=== PATIENT | female | born 1960 | race African-American/Black ===

== ENCOUNTER 2016-12-08 12:30 | Inpatient (IN) ==
--- NOTE | 2016-12-08 13:16 | Emergency Department Note ---
Arrival - Arrival Chief Complaint: Arrhythmia/Palpitations Stated Complaint: LOW HEART RATE. ED Nursing Triage Note: Pt is wearing a heart monitor and states she was called by Dr Worley's nurse and told she needed to come into the ER for Bradycardia. Pt does c/o weakness. Mode of Arrival: Ambulatory Limitations: No Limitations Source: Patient Time Seen by Provider: 12/08/16 13:10 - History of Present Illness HPI Narrative: This 56-year-old black female presents after being called by Dr. Bush's office after her Holter monitor revealed severely depressed heart rates and in fact the patient presents here with a heart rate of 38. The patient does complain of weakness but no chest pain, nausea, or vomiting. She does become easily short of breath with any exertion but denies any other symptoms including near syncope. Currently in bed at rest she is in no acute medical distress. Onset (ago): unknown Allergies/Adverse Reactions: Allergies Allergy/AdvReac Type Severity Reaction Status Date / Time sulfamethoxazole Allergy ITCHING Verified 09/05/14 03:12 [From Bactrim] trimethoprim [From Bactrim] Allergy ITCHING Verified 09/05/14 03:12 Home Medications: Home Medications Medication Instructions Recorded Confirmed Type Aspirin [Ecotrin] 81 mg PO 09/05/14 09/05/14 History Hydrocodone/Acetaminophen 09/05/14 09/05/14 History [Hydrocodon-Acetaminophn 10-325] Losartan [Cozaar] 09/05/14 09/05/14 History Ondansetron Tab [Zofran Tab] 8 mg PO Q8H 09/05/14 09/05/14 History Metoclopramide Liquid [Reglan 5 - 10 mg PO ACHS #1200 mls 09/10/14 Rx Liquid] Pantoprazole Tab [Protonix Tab] 40 mg PO BID #60 tablet 09/10/14 Rx Polyethylene Glycol Powder 17 gm PO DAILY PRN #30 pack 09/10/14 Rx [Miralax] ALPRAZolam [Xanax] 0.25 mg PO BID PRN #15 tablet 09/11/14 Rx Propranolol LA Cap [Inderal LA Cap] 60 mg PO DAILY #30 capsule 09/11/14 Rx cloNIDine TAB [Catapres Tab] 0.1 mg PO BID tablet 09/11/14 Rx fentaNYL 12 MCG/HR PATCH 1 patch TRANSDERM Q3DAY #5 patch 09/11/14 Rx [Duragesic 12 Patch] methIMAzole [Tapazole] 10 mg PO DAILY #30 tablet 09/11/14 Rx Atorvastatin [Lipitor] 20 mg PO DAILY 12/08/16 12/08/16 History Fluticasone Propionate 12/08/16 History [Fluticasone 50 mcg Nasal [place]] Levothyroxine Tab [Synthroid Tab] 112 mcg PO DAILY@0700 12/08/16 12/08/16 History Valsartan [Valsartan] 12/08/16 History Review of System - Review of System 12 point system: reviewed and no additional remarkable complaints except as stated - Review of System Constitutional: Present: as per HPI Respiratory: Present: as per HPI Cardiovascular: Present: as per HPI Gastrointestinal: Present: as per HPI Medical,Surgical,& Family Hx - Medical History Cardio: History of: CAD, Hypertension, [place] Endocrine: History of: Dyslipidemia Gastrointestinal: History of: GERD - Surgical History Cardiac Surgeries: Sugical HX of: Cardiac Catheterization (stent) Abdominal Surgeries: Surgical HX of: Colonoscopy ([address] Landin with polyps discovered at [facility]), EGD (2 weeks ago by Perico Hui at [facility]) Reproductive Surgeries: Surgical HX of;: Hysterectomy - Family History Family History: Reports;: Family Heart Disease - Social History Smoking Status: Former smoker Exam Physical Examination: GENERAL: Well developed, well nourished elderly black female in no acute distress. HEENT: Normocephalic. No trauma. Moist mucous membranes. EOMI. PERRLA. ENT NML NECK: Supple. No adenopathy. CARDIAC: Regular. No murmurs. Heart rate 40 CHEST: Clear to auscultation. No respiratory distress. O2 sat 100% ABDOMEN: Soft. Nontender. Active bowel sounds. EXTREMITIES: No trauma. Normal ROM. No pedal edema. SKIN: No diaphoresis. No rash. NEURO: Alert. Neuro intact no focal deficits. Vital Signs: Vital Signs Temperature 96.3 F L 12/08/16 13:01 Pulse Rate 46 L 12/08/16 13:01 Respiratory Rate 16 12/08/16 13:10 Blood Pressure 97/54 12/08/16 13:01 O2 Sat by Pulse Oximetry 100 12/08/16 14:22 Course - Consultations Consultation #1: Dr. Bush to admit for pacemaker placement. Results - Labs CBC & BMP: 12/08/16 13:35 12/08/16 13:35 - Impressions EKG: Sinus bradycardia at 41 with normal MN interval and QRS duration. Right axis deviation noted. Normal ST segments. No acute injury pattern noted. - Diagnostic Findings Procedure: Chest x-ray: image reviewed by me, report reviewed by me ( Cardiomegaly with mild pulmonary edema) Disposition Clinical Impression: Bradycardia, Congestive heart failure Case discussed with: patient, patient's family Condition: Guarded Time of Disposition: 14:52
--- NOTE | 2016-12-08 13:47 | XRay Report ---
Exam: XR chest 1V portable Date: 12/08/2016 1:12 PM Indication: Shortness of breath Comparison: 09/05/2014 Technical: AP Findings: Cardiomegaly is present with ASVD. External cardiac leads are present. Mild interstitial thickening and low volume effusions suspected. Bony structures are intact. No pneumothorax. Impression: 1. Cardiomegaly with mild CHF and interstitial edema suspected PROCEDURE INTERPRETED AT [facility] DEPARTMENT OF RADIOLOGY Final Report Signed by: Dr. Chava Hernandez
[2016-12-08] MEDS ORDERED: MAGNESIUM SULF RIDER 4 GM in PREMIX 1 EACH IV PRN (13:59)
[2016-12-08] MEDS ORDERED: DOCUSATE SODIUM 100 MG CAPSULE PO PRN (13:59)
[2016-12-08] MEDS ORDERED: MAGNESIUM SULF RIDER 2 GM in PREMIX 1 EACH IV PRN (13:59)
[2016-12-08] MEDS ORDERED: BISACODYL 5 MG TABLET PO PRN (13:59)
[2016-12-08] MEDS ORDERED: ONDANSETRON 4 MG/2 ML VIAL IV PRN (13:59)
[2016-12-08] MEDS ORDERED: ZALEPLON 5 MG CAPSULE PO PRN (13:59)
[2016-12-08 14:15] LABS: Basophils % 0.4 % (0.0-0.8); Eosinophils # 0.1 10*3/uL (0.0-0.87); Eosinophils % 2.1 % (0.00-10.9); Hematocrit 35.1 VOL% (35.7-47.0); Hemoglobin 11.5 GM/DL (12.0-16.0); Immature Granulocytes % 0.1 %; Immature Granulocytes Absolute 0.01 #; Lymphocytes # 2.6 10*3/uL (1.4-4.0); Lymphocytes % 38.8 % (21.3-54.2); Mean Corpuscular HGB Conc 32.8 GM/DL (32-36); Mean Corpuscular Hemoglobin 29 PG (27-34); Mean Corpuscular Volume 88.2 FL (87-102); Mean Platelet Volume 10.2 FL (9.6-12.0); Monocytes # 0.6 10*3/uL (0.11-0.8); Monocytes % 8.2 % (1.7-12.7); Neutrophils # 3.4 10*3/uL (1.4-7.4); Neutrophils % 50.4 % (38.7-73.9); Platelet Count 212 T/CUMM (130-400); Red Blood Count 3.98 MC/CUMM (3.8-5.5); Red Cell Distribution Width 13.6 % (9.3-17.3); White Blood Count 6.7 T/CUMM (4-12)
[2016-12-08] MEDS ORDERED: diphenhydrAMINE CAP 50 MG CAPSULE PO STA (14:29)
[2016-12-08] MEDS ORDERED: DIAZEPAM 5 MG TABLET PO STA (14:29)
[2016-12-08 14:38] LABS: Free T4 (Free Thyroxine) 1.23 NG/DL (0.76-1.46); PT Patient Result 10.3 SECS; Partial Thromboplastin Time 25.8 SECS (0-40); Troponin I Only < 0.015 NG/ML (0.00-0.045)
[2016-12-08] MEDS ORDERED: diphenhydrAMINE CAP 25 MG CAPSULE ONE (14:38)
[2016-12-08] MEDS ORDERED: DIAZEPAM 5 MG TABLET ONE (14:38)
[2016-12-08 14:43] LABS: Apearance,Urine CLEAR (Clear); Bilirubin,Urine Negative (Negative); Blood, Urine Negative (Negative); Glucose,Urine (UA) Negative (Negative); Hyaline Casts,Urine 5 /LPF (0-3); Ketones,Urine Negative (Negative); Mucus,Urine Occasional /LPF (Occasional); Nitrite,Urine Negative (Negative); Protein,Urine Negative; RBC,Urine <1 /HPF (0-4); Squamous Epithelial Cell,Urine Occasional /HPF (0-10); Urine Color Yellow (Yellow); Urine Specific Gravity 1.016 (1.001-1.035); Urine Urobilinogen < 2.0 EU/DL (0.2-1.0); WBC,Urine 1 /HPF (0-6)
[2016-12-08 14:43] LABS: Albumin 3.6 G/DL (3.4-5.0); Bilirubin,Total 0.4 MG/DL (0.2-1.0); Calcium 8.7 MG/DL (8.5-10.1); Osmolality,Calculated 279.4 MOS/KG (273-304); Potassium 4.4 MMOL/L (3.5-5.1); Thyroid Stimulating Hormone 4.31 uIU/ml (0.358-3.74); Total Protein 7.5 G/DL (6.4-8.3)
[2016-12-08] MEDS ORDERED: MIDAZOLAM 2 MG/2 ML VIAL ONE ×2 (14:51→15:42)
[2016-12-08] MEDS ORDERED: LIDOCAINE 1%/EPI INJ 20 ML VIAL ONE ×2 (14:51→14:53)
[2016-12-08] MEDS ORDERED: HYDROmorphone 2 MG/1 ML VIAL ONE ×2 (14:51→15:41)
--- NOTE | 2016-12-08 15:09 | Cardiology History & Physical ---
<Jasmyne Coffey E - Last Filed: 12/08/16 15:00> Assessment and Plan - Time spent with patient Time spent with patient: Greater than 30 minutes (1) Symptomatic bradycardia Status: Acute Assessment and plan: SEE PLAN OF CARE LISTED BELOW Current Visit: Yes (2) Hypertension Status: Chronic Assessment and plan: SEE PLAN OF CARE LISTED BELOW Current Visit: Yes Qualifiers: Hypertension type: essential hypertension Qualified Code(s): I10 - Essential (primary) hypertension (3) Dyslipidemia Status: Chronic Assessment and plan: SEE PLAN OF CARE LISTED BELOW Current Visit: Yes (4) Coronary artery disease Status: Chronic Assessment and plan: SEE PLAN OF CARE LISTED BELOW Current Visit: Yes History of Present Illness Chief complaint: Symptomatic bradycardia History of present illness: COPPER TAPPER: DR. KAMAR WORLEY Patient is being seen in the emergency department Ms. Harper, 56BF, has risk factors significant for: Known coronary artery disease, hypertension, dyslipidemia, sedentary lifestyle. Patient presented to the emergency department after being contacted by [employer]) for recurrent sinus bradycardia heart rate 30s. Patient has been wearing an event monitor approximately 2-3 weeks. Patient originally more monitor due to heart rates in the 20s and 30s while taking Propanolol. Propanolol was discontinued and she remained bradycardic. She has had multiple episodes of lightheadedness, dizziness and near syncope. Denies chest pain, heaviness or tightness. She was seen November [address] Weinberg but pacemaker was deferred at that time due to the patient being asymptomatic. Her symptoms have now progressed as she is having frequent sustained feelings of weakness, lightheadedness, fatigue, dizziness and near syncope. History of possible pancreatic mass spring 2015. Eventually underwent EGD demonstrating gastroparesis but has declined treatment. She was supposed to follow-up in [place] but never did. She has not seen Dr. Purvis in a while. Patient has been tested for sleep apnea and study was negative. Upon arrival to the emergency department, she is demonstrating heart rates in the 30s and 40s at rest, high 40s low 50s with exertion. Labs are stable. She has been counseled regarding the need for permanent pacemaker implantation by Dr. Worley and she is agreeable to undergo this procedure today. Dr. Arturo Rm has been consulted for pacemaker implantation. We will keep her NPO and await his recommendations. Underwent cardiac catheterization June 02, 2014 with EF 60%, 70% stenosis of the left posterior lateral branch with FFR 0.94 (seen by Dr. Price). May 2012 underwent left heart catheterization with Dr. Cristian Sharp for inferior ST MARIANA with p.o. twice daily to the ostial PDA with RAJNI to the proximal RCA. ASSESSMENT/PLAN: 1. SYMPTOMATIC BRADYCARDIA -patient has been wearing an event monitor which correlates with her symptoms of fatigue, lightheadedness, dizziness and near syncope with heart rates in the 30s, 40s and low 50s. She has been recommended to undergo permanent pacemaker implantation. 2. HYPERTENSION - usually well controlled. Will adjust medications accordingly during hospital stay 3. DYSLIPIDEMIA - fasting lipid profile in the morning. Continue lipid- lowering agent 4. KNOWN CORONARY ARTERY DISEASE - see information regarding details of her coronary disease listed above. She is having no active complaints concerning for angina. Home Medications Medication Instructions Recorded Confirmed Type Aspirin [Ecotrin] 81 mg PO 09/05/14 09/05/14 History Hydrocodone/Acetaminophen 09/05/14 09/05/14 History [Hydrocodon-Acetaminophn 10-325] Losartan [Cozaar] 09/05/14 09/05/14 History Ondansetron Tab [Zofran Tab] 8 mg PO Q8H 09/05/14 09/05/14 History Metoclopramide Liquid [Reglan 5 - 10 mg PO ACHS #1200 mls 09/10/14 Rx Liquid] Pantoprazole Tab [Protonix Tab] 40 mg PO BID #60 tablet 09/10/14 Rx Polyethylene Glycol Powder 17 gm PO DAILY PRN #30 pack 09/10/14 Rx [Miralax] ALPRAZolam [Xanax] 0.25 mg PO BID PRN #15 tablet 09/11/14 Rx Propranolol LA Cap [Inderal LA Cap] 60 mg PO DAILY #30 capsule 09/11/14 Rx cloNIDine TAB [Catapres Tab] 0.1 mg PO BID tablet 09/11/14 Rx fentaNYL 12 MCG/HR PATCH 1 patch TRANSDERM Q3DAY #5 patch 09/11/14 Rx [Duragesic 12 Patch] methIMAzole [Tapazole] 10 mg PO DAILY #30 tablet 09/11/14 Rx Atorvastatin [Lipitor] 20 mg PO DAILY 12/08/16 12/08/16 History Fluticasone Propionate 12/08/16 History [Fluticasone 50 mcg Nasal [place]] Levothyroxine Tab [Synthroid Tab] 112 mcg PO DAILY@0700 12/08/16 12/08/16 History Valsartan [Valsartan] 12/08/16 History Allergies Allergy/AdvReac Type Severity Reaction Status Date / Time sulfamethoxazole Allergy ITCHING Verified 09/05/14 03:12 [From Bactrim] trimethoprim [From Bactrim] Allergy ITCHING Verified 09/05/14 03:12 Review of systems: REVIEW OF SYSTEMS: - Constitutional Constitutional: Present: Fatigue, dizziness, lightheadedness, near syncope. Absent: syncope, anorexia, night sweats - EENT Eyes: Acknowledges blurred vision with dizziness. Denies: loss of vision, diplopia Ears: Absent: decreased hearing, ear pain, ear discharge - Cardiovascular Cardiovascular: Denies: chest pain with exertion, dyspnea on exertion, edema, palpitations. Absent: chest pain with deep breath, claudication - Respiratory Respiratory: Present: Dry hacking cough. Absent: wheezing, hemoptysis, change in phlegm color - Gastrointestinal Gastrointestinal: Denies: constipation. Absent: abdominal pain, hematemesis, hematochezia, melena, change in bowel habits, nausea - Genitourinary Genitourinary: Absent: difficulty urinating, dysuria, urinary hesitancy, flank pain - Musculoskeletal Musculoskeletal: Present: back pain Absent: joint swelling, muscle cramps, muscle weakness - Neurological Neurological: Present: normal gait without frequent falls. Absent: hemiparesis - Psychiatric Psychiatric: Present: Frequent anxiety. Absent: depression, difficulty concentrating - Endocrine Endocrine: Present: fatigue. Absent: cold intolerance, heat intolerance, polyuria, polyphagia, polydipsia - Hematologic/Lymphatic Hematologic/Lymphatic: Present: easy bruising. Absent: easy bleeding, easy bruisability -Integumentary Integumentary: Absent: lesions, rashes, skin breakdown Medical,Surgical,& Family Hx - Medical History Cardio: History of: CAD, Hypertension, CT No history of: CHF Endocrine: History of: Dyslipidemia Gastrointestinal: History of: GERD - Surgical History Cardiac Surgeries: Sugical HX of: Cardiac Catheterization (stent) Abdominal Surgeries: Surgical HX of: Colonoscopy ([address] Landin with polyps discovered at [facility]), EGD (2 weeks ago by Perico Hui at [facility]) Reproductive Surgeries: Surgical HX of;: Hysterectomy - Family History Family History: Reports;: Family Heart Disease - Social History Smoking Status: Former smoker Have you smoked in the last 12 months: No Marital Status: Single Cardiology Physical Exam - Constitutional Vitals: Vital Signs Temp Pulse Resp BP Pulse Ox 96.3 F L 46 L 16 97/54 100 12/08/16 13:01 12/08/16 13:01 12/08/16 13:10 12/08/16 13:01 12/08/16 14:22 Intake and Output 12/07/16 12/08/16 12/08/16 23:59 07:59 15:59 Other: Weight 68.039 kg Patient Weight 12/08/16 23:59 Weight 68.039 kg Exam: General: [Appears well with no apparent distress.] [Pleasant and cooperative. ] [Appears comfortable.] HEENT: [PERRL, normocephalic, atraumatic. Mucous membranes moist. No jaundice noted. Conjunctiva moist and clear, sclerae anicteric] Neck: No JVD/HJR, no thyromegaly or lymphadenopathy noted. No carotid bruit appreciated Cardiac: [Slow rate and rhythm.] [No obvious murmur rub or gallop.] Lungs: [Clear to auscultation without accessory muscle use to assist the respiratory pattern.] Not requiring oxygen Abdomen: Soft, bowel sounds normoactive. Nontender and nondistended. No abdominal bruit or thrill noted. No masses noted. Musculoskeletal: No fluid collection. Decreased range of motion is noted. Extremities: No clubbing, cyanosis noted. [ No edema noted.] Upper extremity pulses 2+. Lower extremity pulses 2+. Capillary refill less than 3 seconds. Skin: No unusual lesions or rashes. No skin breakdown appreciated. Neuro: Awake, alert and oriented 3. Moves all extremities well without hemiparesis or paralysis. No essential tremor is appreciated. Result/EKG - Labs CBC & BMP: 12/08/16 13:35 12/08/16 13:35 Lab Results: I have reviewed the past 24 hour labs Labs: Laboratory Results - last 24 hr 12/08/16 12/08/16 12/08/16 13:35 13:35 13:35 WBC RBC Hgb Hct MCV MCH MCHC RDW Plt Count MPV Neut % (Auto) Lymph % (Auto) [place] % (Auto) Eos % (Auto) Baso % (Auto) Neut # (Auto) Lymph # (Auto) [place] # (Auto) Eos # (Auto) Baso # (Auto) Immature Gran % Nucleated RBC % Immature Gran # Nucleated RBCs # Immature Plt Fraction INR 1.0 PT Patient/Control Mix 10.3 Circ Anticoag PTT 25.8 Sodium Potassium Chloride Carbon Dioxide Anion Gap BUN Creatinine GFR Calculation BUN/Creatinine Ratio Glucose Calculated Osmolality Calcium Total Bilirubin AST ALT Alkaline Phosphatase Total Creatine Kinase 146 CK-MB (CK-2) 1.9 Troponin I < 0.015 B-Natriuretic Peptide 191 H Total Protein Albumin Globulin Albumin/Globulin Ratio Free T4 1.23 TSH 3rd Generation Urine Color Urine Appearance Urine pH Ur Specific [place] Urine Protein Urine Glucose (UA) Urine Ketones Urine Blood Urine Nitrate Urine Bilirubin Urine Urobilinogen Urine Leukocytes Urine RBC Urine WBC Ur Squamous Epith Cells Hyaline Casts Urine Mucus Ur Culture Indicated? 12/08/16 12/08/16 12/08/16 13:35 13:35 14:19 WBC 6.7 RBC 3.98 Hgb 11.5 L Hct 35.1 L MCV 88.2 MCH 29 MCHC 32.8 RDW 13.6 Plt Count 212 MPV 10.2 Neut % (Auto) 50.4 Lymph % (Auto) 38.8 [place] % (Auto) 8.2 Eos % (Auto) 2.1 Baso % (Auto) 0.4 Neut # (Auto) 3.4 Lymph # (Auto) 2.6 [place] # (Auto) 0.6 Eos # (Auto) 0.1 Baso # (Auto) 0.0 Immature Gran % 0.1 Nucleated RBC % 0.0 Immature Gran # 0.01 Nucleated RBCs # 0.00 Immature Plt Fraction 0.0 INR PT Patient/Control Mix Circ Anticoag PTT Sodium 140 Potassium 4.4 Chloride 106 Carbon Dioxide 32 Anion Gap 6.4 BUN 16 Creatinine 1.30 H GFR Calculation 53 BUN/Creatinine Ratio 12.00 Glucose 95 Calculated Osmolality 279.4 Calcium 8.7 Total Bilirubin 0.40 AST 22 ALT 29 Alkaline Phosphatase 96 Total Creatine Kinase CK-MB (CK-2) Troponin I B-Natriuretic Peptide Total Protein 7.5 Albumin 3.6 Globulin 3.9 H Albumin/Globulin Ratio 0.9 L Free T4 TSH 3rd Generation 4.310 H Urine Color Yellow Urine Appearance Clear Urine pH 5.0 Ur Specific [place] 1.016 Urine Protein Negative Urine Glucose (UA) Negative Urine Ketones Negative Urine Blood Negative Urine Nitrate Negative Urine Bilirubin Negative Urine Urobilinogen < 2.0 H Urine Leukocytes Negative Urine RBC <1 Urine WBC 1 Ur Squamous Epith Cells Occasional Hyaline Casts 5 Urine Mucus Occasional Ur Culture Indicated? Not indicated - Diagnostic Findings Procedure: Chest x-ray: report reviewed by me - EKG EKG results: interpreted by me EKG shows: bradycardia <Kamar Worley - Last Filed: 12/08/16 15:40> History of Present Illness History of present illness: I have personally interviewed and evaluated the patient, reviewed the chart and discussed medical decision-making with Practitioner Erlinda. I have read this note and agree with her documentation here in. The patient was seen with Nancy helms in the emergency room urgently. She has had progressive decline of her heart rate and is now symptomatic with sustained severe profound sinus bradycardia while awake. I have discussed this patient with Dr. Rm. Given the patient's presenting symptoms I believe it prudent to proceed urgently with pacemaker implantation today rather than wait until Sunday as her heart rate may further deteriorate and create worsening symptoms or heart failure. Cardiology Physical Exam - Constitutional Vitals: Vital Signs Temp Pulse Resp BP Pulse Ox 96.3 F L 46 L 16 97/54 100 12/08/16 13:01 12/08/16 13:01 12/08/16 13:10 12/08/16 13:01 12/08/16 14:22 Intake and Output 12/07/16 12/08/16 12/08/16 23:59 07:59 15:59 Other: Weight 68.039 kg Patient Weight 12/08/16 23:59 Weight 68.039 kg Result/EKG - Labs CBC & BMP: 12/08/16 13:35 12/08/16 13:35 Labs: Laboratory Results - last 24 hr 12/08/16 12/08/16 12/08/16 13:35 13:35 13:35 WBC RBC Hgb Hct MCV MCH MCHC RDW Plt Count MPV Neut % (Auto) Lymph % (Auto) [place] % (Auto) Eos % (Auto) Baso % (Auto) Neut # (Auto) Lymph # (Auto) [place] # (Auto) Eos # (Auto) Baso # (Auto) Immature Gran % Nucleated RBC % Immature Gran # Nucleated RBCs # Immature Plt Fraction INR 1.0 PT Patient/Control Mix 10.3 Circ Anticoag PTT 25.8 Sodium Potassium Chloride Carbon Dioxide Anion Gap BUN Creatinine GFR Calculation BUN/Creatinine Ratio Glucose Calculated Osmolality Calcium Total Bilirubin AST ALT Alkaline Phosphatase Total Creatine Kinase 146 CK-MB (CK-2) 1.9 Troponin I < 0.015 B-Natriuretic Peptide 191 H Total Protein Albumin Globulin Albumin/Globulin Ratio Free T4 1.23 TSH 3rd Generation Urine Color Urine Appearance Urine pH Ur Specific [place] Urine Protein Urine Glucose (UA) Urine Ketones Urine Blood Urine Nitrate Urine Bilirubin Urine Urobilinogen Urine Leukocytes Urine RBC Urine WBC Ur Squamous Epith Cells Hyaline Casts Urine Mucus Ur Culture Indicated? Urine Opiates Screen Ur Barbiturates Screen Ur Phencyclidine Scrn U Amphetamine/Methamph U Benzodiazepines Scrn U Cocaine Metab Screen U Cannabinoids Screen 12/08/16 12/08/16 12/08/16 13:35 13:35 14:19 WBC 6.7 RBC 3.98 Hgb 11.5 L Hct 35.1 L MCV 88.2 MCH 29 MCHC 32.8 RDW 13.6 Plt Count 212 MPV 10.2 Neut % (Auto) 50.4 Lymph % (Auto) 38.8 [place] % (Auto) 8.2 Eos % (Auto) 2.1 Baso % (Auto) 0.4 Neut # (Auto) 3.4 Lymph # (Auto) 2.6 [place] # (Auto) 0.6 Eos # (Auto) 0.1 Baso # (Auto) 0.0 Immature Gran % 0.1 Nucleated RBC % 0.0 Immature Gran # 0.01 Nucleated RBCs # 0.00 Immature Plt Fraction 0.0 INR PT Patient/Control Mix Circ Anticoag PTT Sodium 140 Potassium 4.4 Chloride 106 Carbon Dioxide 32 Anion Gap 6.4 BUN 16 Creatinine 1.30 H GFR Calculation 53 BUN/Creatinine Ratio 12.00 Glucose 95 Calculated Osmolality 279.4 Calcium 8.7 Total Bilirubin 0.40 AST 22 ALT 29 Alkaline Phosphatase 96 Total Creatine Kinase CK-MB (CK-2) Troponin I B-Natriuretic Peptide Total Protein 7.5 Albumin 3.6 Globulin 3.9 H Albumin/Globulin Ratio 0.9 L Free T4 TSH 3rd Generation 4.310 H Urine Color Urine Appearance Urine pH Ur Specific [place] Urine Protein Urine Glucose (UA) Urine Ketones Urine Blood Urine Nitrate Urine Bilirubin Urine Urobilinogen Urine Leukocytes Urine RBC Urine WBC Ur Squamous Epith Cells Hyaline Casts Urine Mucus Ur Culture Indicated? Urine Opiates Screen Negative Ur Barbiturates Screen Negative Ur Phencyclidine Scrn Negative U Amphetamine/Methamph Negative U Benzodiazepines Scrn Positive H U Cocaine Metab Screen Negative U Cannabinoids Screen Negative 12/08/16 14:19 WBC RBC Hgb Hct MCV MCH MCHC RDW Plt Count MPV Neut % (Auto) Lymph % (Auto) [place] % (Auto) Eos % (Auto) Baso % (Auto) Neut # (Auto) Lymph # (Auto) [place] # (Auto) Eos # (Auto) Baso # (Auto) Immature Gran % Nucleated RBC % Immature Gran # Nucleated RBCs # Immature Plt Fraction INR PT Patient/Control Mix Circ Anticoag PTT Sodium Potassium Chloride Carbon Dioxide Anion Gap BUN Creatinine GFR Calculation BUN/Creatinine Ratio Glucose Calculated Osmolality Calcium Total Bilirubin AST ALT Alkaline Phosphatase Total Creatine Kinase CK-MB (CK-2) Troponin I B-Natriuretic Peptide Total Protein Albumin Globulin Albumin/Globulin Ratio Free T4 TSH 3rd Generation Urine Color Yellow Urine Appearance Clear Urine pH 5.0 Ur Specific [place] 1.016 Urine Protein Negative Urine Glucose (UA) Negative Urine Ketones Negative Urine Blood Negative Urine Nitrate Negative Urine Bilirubin Negative Urine Urobilinogen < 2.0 H Urine Leukocytes Negative Urine RBC <1 Urine WBC 1 Ur Squamous Epith Cells Occasional Hyaline Casts 5 Urine Mucus Occasional Ur Culture Indicated? Not indicated Urine Opiates Screen Ur Barbiturates Screen Ur Phencyclidine Scrn U Amphetamine/Methamph U Benzodiazepines Scrn U Cocaine Metab Screen U Cannabinoids Screen
[2016-12-08] MEDS ORDERED: ceFAZolin 1,000 MG VIAL ONE (15:21)
[2016-12-08 15:25] LABS: Barbiturates Screen,Urine Negative (Negative); Benzodiazepines Screen,Urine Positive (Negative); Cannabinoid Screen,Urine Negative (Negative); Opiate Screen,Urine Negative (Negative); Phencyclidine Screen,Urine Negative (Negative)
[2016-12-08] MEDS ORDERED: POLYETHYLENE GLYCOL POWDER 17 GM PACK PO PRN (15:26)
[2016-12-08] MEDS ORDERED: TISSUE ADHESIVE 1 EACH APPLICATOR TOP ONE (16:00)
--- NOTE | 2016-12-08 16:18 | Cardiac Pacemaker ---
- Preoperative diagnosis Date of Procedure:: 12/08/16 Preoperative Diagnosis: Documented nonreversible symptomatic bradycardia due to , sinus node dysfunction Procedure: Procedures performed 1. Percutaneous left subclavian venotomy with sheath placement 2. Placement of atrial and ventricular leads with threshold testing 3. Placement of dual-chamber permanent (note, this is an MRI compatible pacemaker system) The patient had symptomatic bradycardia due to high grade heart block/sinus node dysfunction and needed a dual-chamber pacemaker. After informed consent was obtained was taken to catheter prepped and draped in usual sterile manner. We used minimal sedation for this case. We placed 2 J-tipped wires in the left subclavian vein using a modified Seldinger technique in the usual fashion. With then a pocket approximately 2 cm below the left clavicular border using blunt and sharp dissection as well as electrocautery. We then pulled our leads into the pocket from below. Using safe sheaths, we placed a Medtronic 5076-58 centimeter ventricular lead into the right ventricular apex and secured it with a helical coil. Serial number on the ventricular lead is [id number]. Excellent capture and sensing thresholds were achieved. We then used a Medtronic 5076-52 centimeter lead in the atrium. Serial number on the atrial lead was [id number]. Excellent capture and sensing thresholds were achieved. After the sheaths had been removed, we sutured the leads to the pocket floor using Ethibond suture. We then rinsed the pocket with antibiotic solution and then connected the leads to a Medtronic Advisa DR MRI compatible pacemaker model [id number]. Serial number on the pacemaker is [id number]. After the device give been connected to the leads, it was placed in the pocket and sutured pocket floor with Ethibond suture. We then closed the pocket 3 layers using Vicryl suture. We then applied a topical adhesive and a dressing. There were no apparent complications during the procedure. The patient remained stable throughout the procedure and will now be transferred back to his room for recovery. Anesthesia: minimal conscious sedation Surgeon / Physician: Arturo Rm Estimated blood loss: minimal Condition: stable Disposition: floor - Medications / Follow-up
[2016-12-08] MEDS: PANTOPRAZOLE 40 MG TABLET PO SCH (17:13)
--- NOTE | 2016-12-08 18:01 | XRay Report ---
History: Lead placement Date: 12/08/2016 at 5:11 PM Study: Chest x-ray AP portable Comparison exam: 12/08/2016 at 1:19 PM A left subclavian dual-lead transvenous pacemaker is well-positioned. There is no pneumothorax. The cardiac silhouette is borderline prominent. There is no mediastinal mass. There is mild aortic arch calcification. The pulmonary vasculature is not engorged. The lungs and pleural spaces are clear. There is no gross pleural effusion. Osseous structures are unchanged. Impression: There is no evidence of a pneumothorax following pacemaker placement. The leads appear to be in generally satisfactory position. No adverse interval changes otherwise PROCEDURE INTERPRETED AT [facility] DEPARTMENT OF RADIOLOGY Final Report Signed by: Dr. Rosaura Harris
[2016-12-08] MEDS: ALPRAZolam 0.25 MG TABLET PO PRN (20:39)
[2016-12-09] MEDS ORDERED: VANCOMYCIN INJ 1,000 MG in SODIUM CHLORIDE 0.9% 250 ML IV ONE (02:30)
[2016-12-09 05:40] LABS: Calcium 8.1 MG/DL (8.5-10.1); Magnesium 2.3 MG/DL (1.8-2.4); Osmolality,Calculated 283.1 MOS/KG (273-304); Potassium 4.7 MMOL/L (3.5-5.1)
[2016-12-09 05:47] LABS: Risk Ratio 4.25; VLDL CHOLESTEROL 27.4 MG/DL
[2016-12-09] MEDS ORDERED: LEVOTHYROXINE 112 MCG TABLET PO SCH (07:00)
--- NOTE | 2016-12-09 07:18 | EKG Report ---
Stationary ECG Study [facility] ER Test Date: 12/08/2016 1:09:56 PM Pat Name: KATE MULTANI Department: Room: 266 Gender: F Scrap Drop Engineer: KAMILLA Escamilla : 1960 Requested by: Christopher Morris Order Number: [id number] Reading MD: CATHERINE MEHTA Intervals [place] Rate: 41 P: 44 AR: 179 QRS: 91 QRSD: 83 T: 61 QT: 524 QTc: 459 Interpretive Statements SINUS BRADYCARDIA BORDERLINE RIGHT AXIS DEVIATION Electronically Signed On 12-09-16 12:23:13 CDT by CATHERINE MEHTA [email or web address]
[2016-12-09 07:57] VITALS: BP 125/76
--- NOTE | 2016-12-09 08:03 | EKG Report ---
Stationary ECG Study [facility] Test Date: 12/09/2016 8:04:25 AM Pat Name: KATE MULTANI Department: Room: 266 Gender: F Narcotics And/Or Vice Detective: ANURAG : 1960 Requested by: Christopher Morris Order Number: [id number] Reading MD: CATHERINE MEHTA Intervals [place] Rate: 59 P: 129 OK: 243 QRS: 64 QRSD: 83 T: 61 QT: 449 QTc: 449 Interpretive Statements ELECTRONIC ATRIAL PACEMAKER ABNORMAL RHYTHM ECG Electronically Signed On 12-09-16 12:30:58 CDT by CATHERINE MEHTA [id number]
[2016-12-09] MEDS: PANTOPRAZOLE 40 MG TABLET PO SCH (08:32)
[2016-12-09] MEDS ORDERED: methIMAzole 5 MG TABLET PO SCH (09:00)
[2016-12-09] MEDS ORDERED: ASPIRIN EC 81 MG TABLET PO SCH (09:00)
[2016-12-09] MEDS ORDERED: ATORVASTATIN 20 MG TABLET PO SCH (09:00)
[2016-12-09] MEDS ORDERED: LOSARTAN 50 MG TABLET PO SCH (09:00)
[2016-12-09] MEDS: ALPRAZolam 0.25 MG TABLET PO PRN (09:26)
--- NOTE | 2016-12-09 10:49 | Discharge Summary ---
Hospital Course - Hospital Course Hospital Course: Ms. Harper, 56BF with hx of coronary artery disease, hypertension, dyslipidemia , sedentary lifestyle. Patient presented to the emergency department after being contacted by [employer]) for recurrent sinus bradycardia heart rate 30s. Patient had been wearing an event monitor approximately 2-3 weeks. Patient originally wore monitor due to heart rates in the 20s and 30s while taking Propanolol. Propanolol was discontinued and she remained bradycardic. She has had multiple episodes of lightheadedness, dizziness and near syncope. Denies chest pain, heaviness or tightness. She was seen November [address] Weinberg but pacemaker was deferred at that time due to the patient being asymptomatic. Her symptoms then progressed with symptoms of frequent sustained feelings of weakness, lightheadedness, fatigue, dizziness and near syncope. Upon arrival to the emergency department, she is demonstrating heart rates in the 30s and 40s at rest, high 40s low 50s with exertion. Labs are stable. She underwent PPM implantation with an MRI compatible [employer] device by Dr. Rm 12/09/2016. Postoperatively her pacemaker site was without calor, erythema , hematoma or edema. Chest x-ray did not reveal any pneumothorax, leads appear to be appropriately placed. Device interrogation was satisfactory. The patient is being discharged home in stable condition and has been counseled on post pacemaker care. Of note, the medication reconciliation was done incorrectly, the patient was not taking propranolol or valsartan upon admission and this was verified with pharmacy. I cannot, however extract that from this document. Discharge Plan - Discharge Data Disposition: Disch To Home/Self Care Condition at Discharge: Stable Discharge Diet: heart healthy Activity: other (Wear arm sling/brace 2 weeks day and night, then nighttime only 2 weeks.) Hygiene: may shower - Discharge Medications Continue Ondansetron Tab [Zofran Tab] 8 mg PO Q8H Losartan [Cozaar] Hydrocodone/Acetaminophen [Hydrocodon-Acetaminophn 10-325] Aspirin [Ecotrin] 81 mg PO Polyethylene Glycol Powder [Miralax] 17 gm PO DAILY PRN #30 pack PRN Reason: Constipation Pantoprazole Tab [Protonix Tab] 40 mg PO BID #60 tablet Metoclopramide Liquid [Reglan Liquid] 5 - 10 mg PO ACHS #1200 mls fentaNYL 12 MCG/HR PATCH [Duragesic 12 Patch] 1 patch TRANSDERM Q3DAY #5 patch methIMAzole [Tapazole] 10 mg PO DAILY #30 tablet ALPRAZolam [Xanax] 0.25 mg PO BID PRN #15 tablet PRN Reason: anxiety Levothyroxine Tab [Synthroid Tab] 112 mcg PO DAILY@0700 Fluticasone Propionate [Fluticasone 50 mcg Nasal [place]] Atorvastatin [Lipitor] 20 mg PO DAILY Discontinued cloNIDine TAB [Catapres Tab] 0.1 mg PO BID tablet Propranolol LA Cap [Inderal LA Cap] 60 mg PO DAILY #30 capsule Valsartan [Valsartan] - Follow Up or Referral Follow Up: Arturo Rm MD [Physician] - 1 Week (Also make PM clinic appt that day) Tahmina Worley MD [Physician] - (6 weeks ) - Forms/Instructions Additional Discharge Instructions: Note: Pt was not taking Propranolol, Valsartan or Clonidine on admission, but these cannot be taken out of the computer and are listed as "stop" Exam - Constitutional Vitals: Period Temp Pulse Resp BP Sys/Rios Pulse Ox Last 24 Hr 96.3 F-98.1 F 46-62 16-20 73-151/39-82 93-100 Exam: General appearance: normal weight, no acute distress - Head Head exam: Present: normal inspection, normocephalic, atraumatic. Absent: hematoma, laceration - Eye Eye exam: Present: EOMI. Absent: conjunctival injection, nystagmus, periorbital swelling, scleral icterus, laceration to eyelids Pupils: Present: PERRL. Absent: constricted, dilated, fixed, irregular, unequal - ENT ENT exam: Present: normal exam, normal external ear exam - Neck Neck exam: Present: normal inspection. Absent: lymphadenopathy, meningismus, tenderness, thyromegaly - Respiratory Respiratory exam: Present: clear to auscultation bilaterally. Absent: accessory muscle use, chest wall tenderness - Cardiovascular Cardiovascular exam: Present: regular rate and rhythm. Absent: carotid bruit, gallop, JVD, rubs - GI/Abdominal GI/Abdominal exam: Present: normal bowel sounds, soft. Absent: distended, firm , guarding, hernia, mass, tenderness, rebound. - Extremities Exam Extremities exam: Present: normal inspection, normal capillary refill. Absent: calf tenderness, edema - Back Exam Back exam: Present: normal inspection. Absent: muscle spasm, vertebral tenderness - Neurological Exam Neurological exam: Present: alert, oriented X3, grossly intact without resting or intention tremor - Psychiatric Psychiatric exam: Present: normal affect, normal mood - Skin Skin exam: Present: normal color, warm, dry, intact. Absent: cyanosis, diaphoretic, rash, urticaria Pacemaker implantation site has a dressing in place without surrounding calor, erythema, ecchymosis or edema. Discharge Results Procedures and tests throughout hospitalization: Pending Orders 12/08/16 15:26 CL pacemaker Stat 12/09/16 04:00 XR chest 2V IN AM Labs on day of discharge: Labs from last 24 hours 12/09/16 12/09/16 12/08/16 04:16 04:16 14:19 WBC RBC Hgb Hct MCV MCH MCHC RDW Plt Count MPV Neut % (Auto) Lymph % (Auto) Wolfe % (Auto) Eos % (Auto) Baso % (Auto) Neut # (Auto) Lymph # (Auto) Wolfe # (Auto) Eos # (Auto) Baso # (Auto) Immature Gran % Nucleated RBC % Immature Gran # Nucleated RBCs # Immature Plt Fraction INR PT Patient/Control Mix Circ Anticoag PTT Sodium 142 Potassium 4.7 Chloride 108 H Carbon Dioxide 31 Anion Gap 7.7 BUN 14 Creatinine 1.30 H GFR Calculation 53 BUN/Creatinine Ratio 10.00 Glucose 101 Calculated Osmolality 283.1 Calcium 8.1 L Magnesium 2.3 Total Bilirubin AST ALT Alkaline Phosphatase Total Creatine Kinase CK-MB (CK-2) Troponin I B-Natriuretic Peptide Total Protein Albumin Globulin Albumin/Globulin Ratio Triglycerides 137 Cholesterol 221 H LDL Cholesterol 131.0 VLDL Cholesterol 27.4 HDL Cholesterol 52 Heart Disease Risk Ratio 4.25 Free T4 TSH 3rd Generation Urine Color Yellow Urine Appearance Clear Urine pH 5.0 Ur Specific [place] 1.016 Urine Protein Negative Urine Glucose (UA) Negative Urine Ketones Negative Urine Blood Negative Urine Nitrate Negative Urine Bilirubin Negative Urine Urobilinogen < 2.0 H Urine Leukocytes Negative Urine RBC <1 Urine WBC 1 Ur Squamous Epith Cells Occasional Hyaline Casts 5 Urine Mucus Occasional Ur Culture Indicated? Not indicated Urine Opiates Screen Ur Barbiturates Screen Ur Phencyclidine Scrn U Amphetamine/Methamph U Benzodiazepines Scrn U Cocaine Metab Screen U Cannabinoids Screen 12/08/16 12/08/16 12/08/16 14:19 13:35 13:35 WBC 6.7 RBC 3.98 Hgb 11.5 L Hct 35.1 L MCV 88.2 MCH 29 MCHC 32.8 RDW 13.6 Plt Count 212 MPV 10.2 Neut % (Auto) 50.4 Lymph % (Auto) 38.8 Wolfe % (Auto) 8.2 Eos % (Auto) 2.1 Baso % (Auto) 0.4 Neut # (Auto) 3.4 Lymph # (Auto) 2.6 Wolfe # (Auto) 0.6 Eos # (Auto) 0.1 Baso # (Auto) 0.0 Immature Gran % 0.1 Nucleated RBC % 0.0 Immature Gran # 0.01 Nucleated RBCs # 0.00 Immature Plt Fraction 0.0 INR PT Patient/Control Mix Circ Anticoag PTT Sodium 140 Potassium 4.4 Chloride 106 Carbon Dioxide 32 Anion Gap 6.4 BUN 16 Creatinine 1.30 H GFR Calculation 53 BUN/Creatinine Ratio 12.00 Glucose 95 Calculated Osmolality 279.4 Calcium 8.7 Magnesium Total Bilirubin 0.40 AST 22 ALT 29 Alkaline Phosphatase 96 Total Creatine Kinase CK-MB (CK-2) Troponin I B-Natriuretic Peptide Total Protein 7.5 Albumin 3.6 Globulin 3.9 H Albumin/Globulin Ratio 0.9 L Triglycerides Cholesterol LDL Cholesterol VLDL Cholesterol HDL Cholesterol Heart Disease Risk Ratio Free T4 TSH 3rd Generation 4.310 H Urine Color Urine Appearance Urine pH Ur Specific [place] Urine Protein Urine Glucose (UA) Urine Ketones Urine Blood Urine Nitrate Urine Bilirubin Urine Urobilinogen Urine Leukocytes Urine RBC Urine WBC Ur Squamous Epith Cells Hyaline Casts Urine Mucus Ur Culture Indicated? Urine Opiates Screen Negative Ur Barbiturates Screen Negative Ur Phencyclidine Scrn Negative U Amphetamine/Methamph Negative U Benzodiazepines Scrn Positive H U Cocaine Metab Screen Negative U Cannabinoids Screen Negative 12/08/16 12/08/16 12/08/16 13:35 13:35 13:35 WBC RBC Hgb Hct MCV MCH MCHC RDW Plt Count MPV Neut % (Auto) Lymph % (Auto) Wol[place] % (Auto) Eos % (Auto) Baso % (Auto) Neut # (Auto) Lymph # (Auto) Wolfe # (Auto) Eos # (Auto) Baso # (Auto) Immature Gran % Nucleated RBC % Immature Gran # Nucleated RBCs # Immature Plt Fraction INR 1.0 PT Patient/Control Mix 10.3 Circ Anticoag PTT 25.8 Sodium Potassium Chloride Carbon Dioxide Anion Gap BUN Creatinine GFR Calculation BUN/Creatinine Ratio Glucose Calculated Osmolality Calcium Magnesium Total Bilirubin AST ALT Alkaline Phosphatase Total Creatine Kinase 146 CK-MB (CK-2) 1.9 Troponin I < 0.015 B-Natriuretic Peptide 191 H Total Protein Albumin Globulin Albumin/Globulin Ratio Triglycerides Cholesterol LDL Cholesterol VLDL Cholesterol HDL Cholesterol Heart Disease Risk Ratio Free T4 1.23 TSH 3rd Generation Urine Color Urine Appearance Urine pH Ur Specific [place] Urine Protein Urine Glucose (UA) Urine Ketones Urine Blood Urine Nitrate Urine Bilirubin Urine Urobilinogen Urine Leukocytes Urine RBC Urine WBC Ur Squamous Epith Cells Hyaline Casts Urine Mucus Ur Culture Indicated? Urine Opiates Screen Ur Barbiturates Screen Ur Phencyclidine Scrn U Amphetamine/Methamph U Benzodiazepines Scrn U Cocaine Metab Screen U Cannabinoids Screen DS: Provider Date of admission: 12/08/16 15:28 Primary care physician: . No PCP Attending physician on admission: Tahmina Worley, Discharging clinician: Tahmina Worley, Expected date of discharge: 12/09/16
--- NOTE | 2016-12-09 14:15 | XRay Report ---
History: Pacemaker lead placement Date: 12/09/2016 Study: Chest x-ray PA and lateral Comparison exam: 12/08/2016 A left subclavian dual-lead transvenous pacemaker is stable in appearance. There is no pneumothorax. There is stable mild cardiomegaly. The mediastinal contour is unchanged. The pulmonary vasculature is not engorged. There is no pleural effusion. There is no new or worsening infiltrate. Osseous structures are unchanged. Impression: No evidence of a pneumothorax following pacemaker placement PROCEDURE INTERPRETED AT [facility] DEPARTMENT OF RADIOLOGY Final Report Signed by: Dr. Rosaura Harris
[2016-12-11] MEDS ORDERED: fentaNYL 12 MCG/HR PATCH TRANSDERM SCH (09:00)
== END 2016-12-09 12:11 | disposition home or self-care (01) | DRG 244 ==
LOC: N.EDINP 12:30 → N.ED 12:30 → OBSVTOIN 13:59 → N.EDINP 15:05 → N.TELES 16:36
PROVIDERS: ADMIT Internal Medicine Cardiovascular Disease; ATTEND Internal Medicine Cardiovascular Disease

== ENCOUNTER 2017-06-21 21:26 | Inpatient (IN) ==
[2017-06-21] MEDS ORDERED: NITROGLYCERIN SL 0.4 MG TABLET SL PRN (23:17)
[2017-06-22] MEDS: FLUTICASONE 50 MCG NASAL SPRAY 16 GM BOTTLE BOTH NARES SCH ×2 (02:02→11:08)
[2017-06-22 06:00] LABS: Basophils % 0.3 % (0.0-0.8); Eosinophils # 0.3 10*3/uL (0.0-0.87); Eosinophils % 3.8 % (0.00-10.9); Hematocrit 35.6 VOL% (35.7-47.0); Hemoglobin 11.6 GM/DL (12.0-16.0); Immature Granulocytes % 0.1 %; Immature Granulocytes Absolute 0.01 #; Lymphocytes # 3.2 10*3/uL (1.4-4.0); Lymphocytes % 42.7 % (21.3-54.2); Mean Corpuscular HGB Conc 32.6 GM/DL (32-36); Mean Corpuscular Hemoglobin 29 PG (27-34); Mean Corpuscular Volume 88.3 FL (87-102); Mean Platelet Volume 10.4 FL (9.6-12.0); Monocytes # 0.7 10*3/uL (0.11-0.8); Neutrophils # 3.3 10*3/uL (1.4-7.4); Neutrophils % 44.1 % (38.7-73.9); Platelet Count 229 T/CUMM (130-400); Red Blood Count 4.03 MC/CUMM (3.8-5.5); Red Cell Distribution Width 12.7 % (9.3-17.3); White Blood Count 7.4 T/CUMM (4-12)
[2017-06-22 06:49] LABS: Calcium 8.7 MG/DL (8.5-10.1); Osmolality,Calculated 287.1 MOS/KG (273-304); Potassium 4.4 MMOL/L (3.5-5.1); Risk Ratio 3.7; VLDL CHOLESTEROL 18.6 MG/DL
[2017-06-22] MEDS ORDERED: ASPIRIN 325 MG TABLET PO SCH (09:00)
[2017-06-22] MEDS ORDERED: ENOXAPARIN 40 MG/0.4 ML SYRINGE SUBCUT SCH (09:00)
[2017-06-22] MEDS ORDERED: PANTOPRAZOLE 40 MG TABLET PO SCH (10:00)
[2017-06-22] MEDS ORDERED: CARVEDILOL 3.125 MG TABLET PO SCH (10:00)
[2017-06-22] MEDS ORDERED: ALUM/MAG/SIMETH/LIDO VISC 1:1 30 ML BOTTLE PO ONE (10:18)
[2017-06-22 12:03] VITALS: BP 137/77
[2017-06-22] MEDS ORDERED: ATORVASTATIN 40 MG TABLET PO SCH (21:00)
== END 2017-06-22 14:50 | disposition home or self-care (01) | DRG 392 ==
LOC: N.TELES 22:39
PROVIDERS: ADMIT Internal Medicine; ATTEND Internal Medicine